=== PATIENT | male | born 1980 | race Caucasian/White ===

== ENCOUNTER 2025-08-28 09:57 | Emergency (ER) | payer OTHER ==
[~2025-08-28] VITALS: Ht 180.3 cm; Wt 122.3 kg
[2025-08-28 10:11] VITALS: TEMP 98.3
[2025-08-28] MEDS: KETOROLAC TROMETHAMINE 30 MG/ML VIAL IM ONE (12:31)
[2025-08-28 13:40] VITALS: BP 104/74; PULSE 77; RESP 18; O2SAT 99
== END 2025-08-28 14:15 | disposition home or self-care (01) ==
LOC: EMS 09:57
DX: S76.911A Strain of unspecified muscles, fascia and tendons at thigh level, right thigh, initial encounter (principal); J45.909 Unspecified asthma, uncomplicated; K21.9 Gastro-esophageal reflux disease without esophagitis; G20.A1 Parkinson's disease without dyskinesia, without mention of fluctuations; Z98.890 Other specified postprocedural states; Z88.5 Allergy status to narcotic agent; Z91.040 Latex allergy status; W01.0XXA Fall on same level from slipping, tripping and stumbling without subsequent striking against object, initial encounter; Y93.89 Activity, other specified; Y92.89 Other specified places as the place of occurrence of the external cause; Y99.8 Other external cause status
CPT/HCPCS: 99283; 96372; J1885